=== PATIENT | female | born 1995 | race Caucasian/White ===

== ENCOUNTER 2024-12-18 17:46 | Emergency (ER) | payer SELFPAY ==
--- NOTE | 2024-12-18 17:48 | XRR_ITS ---
PROCEDURE INFORMATION: Exam: XR Left Ankle Exam date and time: 12/18/2024 6:23 PM Age: 29 years old Clinical indication: Pain; Ankle and foot; Left; Additional info: Lt ankle/lateral foot pain/swelling after fall down stairs; HX lt ankle/foot FX x 8yrs ago-no surgical intervention. TECHNIQUE: Imaging protocol: Radiologic exam of the left ankle. Views: 3 or more views. COMPARISON: CR (LOW EXM, ) 12/18/2024 6:23 PM FINDINGS: Bones/joints: No acute fracture or dislocation. Mild asymmetric widening of the medial clear space is likely projectional. Joint spaces are maintained. Soft tissues: Normal. XR/XR ankle LT min 3V* [id number] IMPRESSION: No acute osseous findings.
--- NOTE | 2024-12-18 17:48 | XRR_ITS ---
PROCEDURE INFORMATION: Exam: XR Left Foot Exam date and time: 12/18/2024 6:23 PM Age: 29 years old Clinical indication: Pain; Ankle and foot; Left; Additional info: Lt ankle/lateral foot pain/swelling after fall down stairs; HX lt ankle/foot FX x 8yrs ago-no surgical intervention. TECHNIQUE: Imaging protocol: Radiologic exam of the left foot. Views: 3 or more views. COMPARISON: CR XR ankle LT min 3V* [id number] 12/18/2024 6:23 PM FINDINGS: Bones/joints: Small plantar calcaneal enthesophyte. No acute fracture or dislocation. Soft tissues: Normal. XR/XR foot LT min 3V* [id number] IMPRESSION: No acute osseous findings.
[2024-12-18 18:26] VITALS: BP 139/70; PULSE 93; RESP 16; O2SAT 99
--- NOTE | 2024-12-18 20:01 | W.ED.EXTPRO ---
Documented by User: [email or web address] Wharton 12/18/24 20:04 HPI - Extremity Problem General: Chief complaint: Extremity Injury, Lower Stated complaint: l foot pain Time Seen by Provider: 12/18/24 18:34 Source: patient Mode of arrival: ambulatory Limitations: no limitations History of Present Illness: Patient is a 29-year-old female who presents the emergency department planing of left foot pain onset last night. She states that around 1900 last night, she slipped and fell downstairs, causing inversion ankle injury to her left foot. Reports previous fracture to this foot, and issues with instability in the past. No other injuries reported, she has been using a walking boot from previous fracture. Reporting some mild swelling of the left lateral ankle into the foot, no bruising. Has been able to ambulate. Has not taken any medications other than Motrin this morning. MD Complaint: extremity pain and joint pain Onset (ago): day(s) Pain Consistency: constant Location: left and lower extremity Radiation: distal Associated symptoms: Deny chest pain, fever(s) or rash Context: other (fall, inversion ankle inj) Related Data Allergies Allergy/AdvReac Type Severity Reaction Status Date / Time ketchup Allergy Unknown Verified 12/18/24 18:31 pickles Allergy Unknown Uncoded 12/18/24 18:31 Review of Systems General: Reports: 10 or more systems reviewed and unremarkable except in HPI and below Const: Denies: fever(s) or chills Card: Denies: chest pain Resp: Denies: dyspnea or productive cough GI: Denies: abdominal pain, nausea, vomiting or diarrhea : Denies: flank pain Musc: Reports: extremity pain (left foot), extremity swelling (left foot), joint pain (left ankle) and joint swelling (left ankle); Denies: neck pain, back pain, joint redness, joint warmth, limited range of motion or muscle weakness Skin/Breast: Denies: rash Neuro: Denies: headache(s), numbness in extremities or weakness in extremities Physical Exam Const: COMMON NORMALS: no acute distress, patient oriented x3, no limitations, healthy appearing, alert and well nourished HENMT: COMMON NORMALS: normocephalic and atraumatic HEAD & SCALP: normocephalic and atraumatic Neck/C-Spine: COMMON NORMALS: full ROM, supple and no meningeal signs Resp: COMMON NORMALS: normal respiratory effort, No use of accessory muscles and clear to auscultation bilaterally AUSCULTATION: clear to auscultation bilaterally Cardio: COMMON NORMALS: regular rate and regular rhythm RATE: regular rate RHYTHM: regular rhythm Extremity: COMMON NORMALS: full ROM, capillary refill normal and no clubbing, cyanosis or edema NARRATIVE EXTREMITY EXAM: Mild swelling to the left lateral malleolus and left dorsum foot. Pulses palpable. Positive inversion ankle testing. Distal sensations intact. Neuro: COMMON NORMALS: patient oriented x3, moves all extremities, no focal motor deficits and no sensory deficits noted SENSORIUM/ORIENTATION: Yes alert MENINGEAL SIGNS: Yes no meningeal signs Skin: COMMON NORMALS: no rashes or lesions noted GENERAL SKIN EXAM: no rashes or lesions noted Course Vital Signs: Vital signs: Vital Signs Pulse Rate 93 12/18/24 18:26 Respiratory Rate 16 12/18/24 18:26 Blood Pressure 139/70 12/18/24 18:26 Pulse Oximetry 99 12/18/24 18:26 Oxygen Delivery Me thod Room Air 12/18/24 18:26 MDM - Extremity (Nontraumatic) Medical Decision Making Patient presented after a fall last night, injuring her left foot. Exam positive for tenderness palpation of left lateral ankle and dorsum of the foot, where there is mild swelling. Has been ambulatory with a walking boot. X-rays were negative for any acute fracture, I suspect a sprain of the left foot and/or left ankle and she is given crutches as needed and sent home with compression wrap. Other conservative measures discussed. Lab Data Radiology Impressions Ankle X-Ray 12/18/24 17:48 IMPRESSION: No acute osseous findings. Foot X-Ray 12/18/24 17:48 IMPRESSION: No acute osseous findings. All radiology interpretation(s) finalized by discharge Discharge Plan Discharge Patient Disposition: Home Clinical Impression: Sprain of foot, left Qualifiers: Encounter type: initial encounter Qualified Code(s): S93.602A - Unspecified sprain of left foot, initial encounter Condition: Stable Discharge Orders: Discharge ED (Routine); Ordered 12/18/24 Ordered By: Oscar Mehta Referrals: Sean Ramirez FNP [Primary Care Provider, Orthopedics] Patient Instructions: Patient Portal & Wei Instructions Activity Restrictions/Additional Instructions: Left Foot/Ankle Sprain Discharge Diagnosis: Left foot and ankle sprain. Discharge Instructions: - Weight Bearing and Mobility: - Encourage early, progressive weight bearing as tolerated. Crutches may be used for ambulation if pain or instability limits safe walking. Gradually transition off crutches as symptoms improve and stability returns. - Avoid activities that provoke pain or instability. - Protection and Support: - Use a functional brace, elastic bandage, or ankle taping for stabilization. Rigid immobilization is generally not recommended except for severe (grade III) sprains, which may require short-term immobilization (<=0 days). - Ensure external support is comfortable and does not compromise circulation. - Pain and Swelling Management: - Apply ice (cryotherapy) to the affected area for 20?30 minutes, 3?4 times daily during the first 3?7 days post-injury. Use a bag of ice and water wrapped in a damp cloth; do not place ice directly on skin to avoid cold injury. - Elevate the limb above heart level when possible to minimize swelling. - Apply a compression wrap for comfort, but avoid excessive tightness. - For pain control, use acetaminophen or nonsteroidal anti-inflammatory drugs (NSAIDs) at standard dosages, unless contraindicated. Opioids are rarely indicated and should be avoided. - Rehabilitation: - Initiate a comprehensive rehabilitation program once acute symptoms subside. This should include: - Range of motion (ROM) exercises - Stretching and strengthening of the ankle and foot musculature - Neuromuscular and proprioceptive training (e.g., balance exercises) - Sport- or activity-specific exercises as appropriate - Supervised physical therapy may be considered for patients at risk of chronic ankle instability or with recurrent sprains. - Activity Modification: - Limit high-risk activities (running, jumping, pivoting) until full function and stability are restored. - Return to sport or strenuous activity only after completing rehabilitation and demonstrating pain-free, stable function. - Follow-Up and Warning Signs: - Schedule follow-up if symptoms do not improve within 1?2 weeks, or if there is persistent pain, swelling, instability, or inability to bear weight. - Seek immediate care for signs of neurovascular compromise (numbness, tingling, pale or cold foot), worsening pain, or suspected infection. - Prevention: - Use ankle braces or taping and continue neuromuscular training to reduce risk of recurrence, especially in athletes or those with prior sprains. Additional Notes: - There is insufficient evidence to support the use of injectable biologic therapies, ultrasound, or thermotherapy in the acute phase. - Electrical stimulation may be used as an adjunct for swelling, but is not routinely recommended. Print Language: Argentine Coding Level of Care Code ED [employer] Documented by User: Robert Alas DO 12/19/24 02:12 HPI - Extremity Problem General: Chief complaint: Extremity Injury, Lower Stated complaint: l foot pain Time Seen by Provider: 12/18/24 18:34 Related Data Allergies Allergy/AdvReac Type Severity Reaction Status Date / Time ketchup Allergy Unknown Verified 12/18/24 18:31 pickles Allergy Unknown Uncoded 12/18/24 18:31 Course Vital Signs: Vital signs: Vital Signs Pulse Rate 93 12/18/24 18:26 Respiratory Rate 16 12/18/24 18:26 Blood Pressure 139/70 12/18/24 18:26 Pulse Oximetry 99 12/18/24 18:26 Oxygen Delivery Me thod Room Air 12/18/24 18:26 MDM - Extremity (Nontraumatic) Medical Decision Making Patient presented after a fall last night, injuring her left foot. Exam positive for tenderness palpation of left lateral ankle and dorsum of the foot, where there is mild swelling. Has been ambulatory with a walking boot. X-rays were negative for any acute fracture, I suspect a sprain of the left foot and/or left ankle and she is given crutches as needed and sent home with compression wrap. Other conservative measures discussed. This patient was originally seen by Mr. Janine PA-C. I agree with his history, evaluation, and management. Lab Data Radiology Impressions Ankle X-Ray 12/18/24 17:48 IMPRESSION: No acute osseous findings. Foot X-Ray 12/18/24 17:48 IMPRESSION: No acute osseous findings. Discharge Plan Discharge Patient Disposition: Home Clinical Impression: Sprain of foot, left Qualifiers: Encounter type: initial encounter Qualified Code(s): S93.602A - Unspecified sprain of left foot, initial encounter Condition: Stable Discharge Orders: Discharge ED (Routine); Ordered 12/18/24 Ordered By: Oscar Mehta Referrals: Sean Ramirez FNP [Primary Care Provider, Orthopedics] Patient Instructions: Patient Portal & Wei Instructions Activity Restrictions/Additional Instructions: Left Foot/Ankle Sprain Discharge Diagnosis: Left foot and ankle sprain. Discharge Instructions: - Weight Bearing and Mobility: - Encourage early, progressive weight bearing as tolerated. Crutches may be used for ambulation if pain or instability limits safe walking. Gradually transition off crutches as symptoms improve and stability returns. - Avoid activities that provoke pain or instability. - Protection and Support: - Use a functional brace, elastic bandage, or ankle taping for stabilization. Rigid immobilization is generally not recommended except for severe (grade III) sprains, which may require short-term immobilization (<=0 days). - Ensure external support is comfortable and does not compromise circulation. - Pain and Swelling Management: - Apply ice (cryotherapy) to the affected area for 20?30 minutes, 3?4 times daily during the first 3?7 days post-injury. Use a bag of ice and water wrapped in a damp cloth; do not place ice directly on skin to avoid cold injury. - Elevate the limb above heart level when possible to minimize swelling. - Apply a compression wrap for comfort, but avoid excessive tightness. - For pain control, use acetaminophen or nonsteroidal anti-inflammatory drugs (NSAIDs) at standard dosages, unless contraindicated. Opioids are rarely indicated and should be avoided. - Rehabilitation: - Initiate a comprehensive rehabilitation program once acute symptoms subside. This should include: - Range of motion (ROM) exercises - Stretching and strengthening of the ankle and foot musculature - Neuromuscular and proprioceptive training (e.g., balance exercises) - Sport- or activity-specific exercises as appropriate - Supervised physical therapy may be considered for patients at risk of chronic ankle instability or with recurrent sprains. - Activity Modification: - Limit high-risk activities (running, jumping, pivoting) until full function and stability are restored. - Return to sport or strenuous activity only after completing rehabilitation and demonstrating pain-free, stable function. - Follow-Up and Warning Signs: - Schedule follow-up if symptoms do not improve within 1?2 weeks, or if there is persistent pain, swelling, instability, or inability to bear weight. - Seek immediate care for signs of neurovascular compromise (numbness, tingling, pale or cold foot), worsening pain, or suspected infection. - Prevention: - Use ankle braces or taping and continue neuromuscular training to reduce risk of recurrence, especially in athletes or those with prior sprains. Additional Notes: - There is insufficient evidence to support the use of injectable biologic therapies, ultrasound, or thermotherapy in the acute phase. - Electrical stimulation may be used as an adjunct for swelling, but is not routinely recommended. Print Language: Argentine Coding Level of Care Code ED [employer] Protection [employer]er for [employer] Payne
== END 2024-12-18 20:15 | disposition home or self-care (01) ==
PROVIDERS: Emergency Provider Physician Assistant; Family Provider Nurse Practitioner Family; PCP Nurse Practitioner Family
DX: S93.602A Unspecified sprain of left foot, initial encounter (principal); W10.9XXA Fall (on) (from) unspecified stairs and steps, initial encounter
CPT/HCPCS: 73610; 73630; 99283